=== PATIENT | female | born 1975 | race Asian ===

== ENCOUNTER 2017-08-07 13:55 | Emergency (ER) | payer MEDICAID ==
[~2017-08-07] VITALS: Ht 157.5 cm; Wt 83.5 kg
[2017-08-07] MEDS ORDERED: IBUPROFEN 800 MG TABLET PO ONE (15:15)
[2017-08-07 16:28] VITALS: BP 140/80
== END 2017-08-07 16:29 | disposition home or self-care (01) ==
LOC: EMS 13:57
DX: S16.1XXA Strain of muscle, fascia and tendon at neck level, initial encounter (principal); S30.1XXA Contusion of abdominal wall, initial encounter; R51 Headache; V49.69XA Unspecified car occupant injured in collision with other motor vehicles in traffic accident, initial encounter; Y93.89 Activity, other specified; Y92.410 Unspecified street and highway as the place of occurrence of the external cause; Y99.8 Other external cause status
CPT/HCPCS: 99283

== ENCOUNTER 2021-10-18 13:25 | Emergency (ER) | payer MEDICAID ==
[~2021-10-18] VITALS: Ht 154.9 cm; Wt 63.6 kg
[2021-10-18 13:39] VITALS: BP 147/92
== END 2021-10-18 17:38 | disposition left against medical advice (07) ==
LOC: EMS 13:30
DX: Z53.21 Procedure and treatment not carried out due to patient leaving prior to being seen by health care provider (principal)
CPT/HCPCS: 93005